=== PATIENT | female | born 1990 | race Caucasian/White ===

== ENCOUNTER 2016-09-08 21:44 | Emergency (ER) | payer SELFPAY ==
[2016-09-08 21:49] VITALS: BP 127/80; PULSE 80; RESP 16; TEMP 97.7; O2SAT 98
[2016-09-08] MEDS ORDERED: PROPARACAINE 0.5% 15 ML OPHT DROP EACHEYE ONE (21:58)
[2016-09-08] MEDS ORDERED: FLUORESCEIN SODIUM 1 MG STRIP OP ONE ×2 (22:09→22:24)
--- NOTE | 2016-09-08 22:13 | EDPHY ---
H & P Stated Complaint: bilat eye burning and dry Time Seen by Provider: 09/08/16 22:01 HPI/ROS: HPI The patient presents with bilateral eye pain which she describes as burning and has been constant for the last 3 days. She went on a hike 3 days ago and did not wear sunglasses, it was very lita and there was a lot of snow. Several hours after the hike her symptoms started. She describes moderate pain bilaterally associated with some redness of her left eye. She has very mild photophobia. She does not have any changes in her vision. She feels that bright colors hurt her eyes. She does not wear contacts, though wears glasses. She has no prior history of similar.. REVIEW OF SYSTEMS Constitutional: No fever, no chills. Eyes: No discharge. Skin: No rashes. Neurological: No headache. PMHx: Healthy PHYSICAL General Appearance: Alert, no distress EYE EXAM Visual Acuity: noted from Nurse's notes. Pupils: equal round and reactive to light EOMI Skin: no proptosis, no periorbital erythema or swelling, no vesicles Conjunctivae: slight injection of left nasal conjunctiva, no discharge Cornea: exam with fluoroscein shows left greater than right multiple small areas of fluorescein uptake Anterior chamber:normal, no hyphema or hypopyon ENT, Mouth: Mucous membranes moist Respiratory: Breathing comfortably Musculoskeletal: Neck is supple non tender Extremities: symmetrical, full range of motion Psychiatric: Patient is oriented X 3, there is no agitation Source: Patient Exam Limitations: No limitations - Personal History LMP (Females 10-55): Over 28 Days Ago Current Tetanus/Diphtheria Vaccine: Yes Current Tetanus Diphtheria and Acellular Pertussis (TDAP): Yes - Medical/Surgical History Hx Asthma: No Hx Chronic Respiratory Disease: No Hx Diabetes: No Hx Cardiac Disease: No Hx Renal Disease: No Hx Cirrhosis: No Hx Alcoholism: No Hx HIV/AIDS: No Hx Splenectomy or Spleen Trauma: No - Social History Smoking Status: Never smoked Constitutional: Initial Vital Signs Temperature (C) 36.5 C 09/08/16 21:47 Heart Rate 80 09/08/16 21:47 Respiratory Rate 16 09/08/16 21:47 Blood Pressure 127/80 H 09/08/16 21:47 O2 Sat (%) 98 09/08/16 21:47 O2 Delivery Mode Room Air Allergies/Adverse Reactions: penicillin G Allergy (Verified 09/08/16 21:50) Penicillins Allergy (Verified 09/08/16 21:50) Home Medications: Medication Instructions Recorded NK [No Known Home Meds] 09/08/16 Medical Decision Making Differential Diagnosis: This is a 26-year-old healthy female who presents with 3 days of bilateral eye pain, redness, mild photophobia after several hours hiking on a lita day in the snow without sunglasses. Differential diagnosis includes UV keratitis, conjunctivitis, corneal abrasion. Eye exam reveals several small corneal defects with floor is seen. Otherwise her exam is normal. I feel she likely has UV keratitis and I have discussed this with her. Plan for initiation of antibiotic eyedrops, follow up with ophthalmology if symptoms do not resolve in the next 1 day. Departure - Departure Disposition: Home, Routine, Self-Care Clinical Impression: UV keratitis Qualifiers: Laterality: bilateral Qualified Code(s): H16.133 - Photokeratitis, bilateral Condition: Good Instructions: Keratitis (ED) Additional Instructions: Please call the crisis therapist to arrange for follow-up within the next 1-2 days. Referrals: Kings Ellison [Medical Doctor] - As per Instructions
[2016-09-08] MEDS ORDERED: OFLOXACIN 0.3% SOLN PREPACK OPHT.BTL TAKEHOME ONE (22:21)
== END 2016-09-08 22:36 | disposition home or self-care (01) ==
DX: H16.133 Photokeratitis, bilateral (principal)